=== PATIENT | female | born 1955 ===

== ENCOUNTER 2017-08-05 09:21 | Day surgery (SDC) | payer OTHER ==
[2017-08-05] MEDS ORDERED: Lactated Ringer's 500 ML IV ONE (09:50)
[2017-08-05] MEDS ORDERED: Lidocaine PF 2% (5 ml) Inj (For Cardiac Arrhy) IV ONE (11:43)
[2017-08-05] MEDS ORDERED: Propofol 10 mg/ml Inj (20 ML) ONE (11:43)
[2017-08-05 12:44] VITALS: TEMP 97
[2017-08-05 12:46] VITALS: BP 115/67; PULSE 67; RESP 15; O2SAT 99
== END 2017-08-05 12:57 | disposition home or self-care (01) ==
LOC: H.ENDO 09:21 → EDSTATUS 11:00 → H.ENDO 12:57
PROVIDERS: ATTEND Internal Medicine Gastroenterology
DX: Z12.11 Encounter for screening for malignant neoplasm of colon (principal); G47.30 Sleep apnea, unspecified; E11.9 Type 2 diabetes mellitus without complications; I10 Essential (primary) hypertension; K64.8 Other hemorrhoids; K29.50 Unspecified chronic gastritis without bleeding; K30 Functional dyspepsia; B37.81 Candidal esophagitis
CPT/HCPCS: 43239; 45378; 88305; J2704; J7120